=== PATIENT | female | born 1960 | race Caucasian/White ===

== ENCOUNTER 2025-09-17 23:59 | Emergency (ER) | payer OTHER, MEDICAID ==
[~2025-09-17] VITALS: Ht 165.1 cm; Wt 107.0 kg
[2025-09-18 00:08] VITALS: O2SAT 99
[2025-09-18 00:54] LABS: BASOPHILS % 0.6 % (0.0-2.0); EOSINOPHILS % 2.8 % (0.0-5.0); HEMATOCRIT. 46.0 % (36.0-48.0); HEMOGLOBIN. 15.4 g/dL (12.0-16.0); LYMPHOCYTES % 20.0 % (20.0-50.0); MEAN PLATELET VOLUME 8.6 fl (7.4-10.4); MONOCYTES % 8.3 % (2.0-8.0); NEUTROPHILS % 68.3 % (40.0-76.0); PLATELET 163 x1000/uL (130-400); RED BLOOD CELL COUNT 5.07 mill/uL (4.2-5.4); RED CELL DISTRIBUTION WIDTH 13.3 % (11.6-14.6)
[2025-09-18 01:08] LABS: CREATININE 1.3 mg/dL (0.6-1.0); UREA NITROGEN BLOOD 15 mg/dL (9-23)
[2025-09-18 01:11] LABS: TROPONIN I HIGH SENSITIVITY 4 ng/L (3.0-34)
[2025-09-18] MEDS: METHYLPREDNISOLONE SOD SUCC 125MG/2ML (ACT-O-VIAL) IV ONE (01:14)
[2025-09-18 03:52] VITALS: BP 118/77; PULSE 71; RESP 18; TEMP 36.9; O2SAT 98
[2025-09-18 03:53] LABS: TROPONIN I HIGH SENSITIVITY 4 ng/L (3.0-34)
[2025-09-18] MEDS ORDERED: DIPH25CA83 MT (03:55)
== END 2025-09-18 04:21 | disposition home or self-care (01) ==
LOC: ER 23:59 → CMPBEDREQ 09-18 07:27
DX: T78.40XA Allergy, unspecified, initial encounter (principal); I11.0 Hypertensive heart disease with heart failure; I50.9 Heart failure, unspecified
CPT/HCPCS: 99284; 80048; 83880; 85025; 84484; 36415; 71045; 96374; J2919; Z7610 ×2